=== PATIENT | female | born 1965 | race Caucasian/White ===

== ENCOUNTER 2021-02-04 16:37 | Emergency (ER) | payer MEDICAID ==
[~2021-02-04] VITALS: Ht 152.4 cm; Wt 54.5 kg
[~2021-02-04 16:37] MED LIST: ALBU8.5H8 IH; ASPI81TA39 PO; IBUP-1506 PO; INSLAN SQ; INSU100V SQ; LORA10TA7 PO
[2021-02-04] MEDS ORDERED: FLUT16H NASAL (16:53)
[2021-02-04] MEDS ORDERED: LISI-894 PO (16:53)
[2021-02-04] MEDS ORDERED: ONDA-104 PO (16:53)
[2021-02-04] MEDS ORDERED: LORA10TA7 PO (16:53)
[2021-02-04] MEDS ORDERED: HYDR25TA2 PO (16:53)
[2021-02-04] MEDS ORDERED: FAMO20 PO (16:53)
[2021-02-04] MEDS ORDERED: PHENOBARB/HYOSCY/ATROPINE/SCOP 5 ML UDCUP ELIXIR PO ONE (19:00)
[2021-02-04] MEDS ORDERED: MAGNESIUM CITRATE 300 ML ORAL SOLUTION PO ONE (19:00)
[2021-02-04] MEDS ORDERED: HYDROCHLOROTHIAZIDE 25 MG TABLET PO ONE (21:15)
[2021-02-04 22:30] VITALS: BP 148/94
[2021-02-04 23:11] LABS: APPEARANCE,URINE CLEAR (CLEAR); BILIRUBIN,URINE NEGATIVE (NEGATIVE); GLUCOSE, URINE (UA) 100 mg/dL (NEGATIVE); KETONES,URINE NEGATIVE (NEGATIVE); LEUKOCYTE ESTERASE ,URINE SMALL (NEGATIVE); NITRATE,URINE NEGATIVE (NEGATIVE); OCCULT BLOOD,URINE SMALL (NEGATIVE); PH,URINE 6.5 (5.0-8.0); PROTEIN,URINE SEE CONFIRM (NEGATIVE); UROBILINOGEN,URINE 0.2 mg/dL (<=1.0)
[2021-02-04 23:14] LABS: SULFOSALICYLIC ACID,URINE 4+ (Negative)
[2021-02-04 23:15] LABS: BACTERIA,URINE Few /HPF (None Seen); SQUAMOUS EPITHELIAL CELL,UR Few /LPF (None Seen)
== END 2021-02-04 22:54 | disposition home or self-care (01) ==
LOC: EMS 16:39 → MERGE 16:39 → EMS 22:54
DX: K59.00 Constipation, unspecified (principal); I10 Essential (primary) hypertension; F41.9 Anxiety disorder, unspecified; E11.9 Type 2 diabetes mellitus without complications; Z79.899 Other long term (current) drug therapy
CPT/HCPCS: 81001; 81002; 82962; 87086; 99284

== ENCOUNTER 2021-10-31 17:21 | Emergency (ER) | payer MEDICAID, OTHER ==
[~2021-10-31] VITALS: Ht 154.9 cm; Wt 55.9 kg
[~2021-10-31 17:21] MED LIST changes: +FAMO20 PO; +FLUT16H NASAL; +HYDR-4870 PO; +LISI-894 PO; +ONDA-104 PO
[2021-10-31] MEDS ORDERED: GABA-1181 PO (17:38)
[2021-10-31] MEDS ORDERED: EMPA10TA PO (17:38)
[2021-10-31] MEDS ORDERED: AMLO-258 PO (17:38)
[2021-10-31] MEDS ORDERED: LOSA-382 PO (17:38)
[2021-10-31] MEDS ORDERED: METO25XL PO (17:38)
[2021-10-31] MEDS ORDERED: LABETALOL HCL 5 MG/ML 20 ML VIAL IVP ONE (18:00)
[2021-10-31] MEDS ORDERED: BECL10.6 IH (18:05)
[2021-10-31] MEDS ORDERED: CHLO25TA3 PO (18:05)
[2021-10-31] MEDS ORDERED: METO25 PO (18:05)
[2021-10-31] MEDS ORDERED: INSU100I26 SQ (18:05)
[2021-10-31] MEDS ORDERED: ACETAMINOPHEN 500 MG TABLET PO ONE (18:15)
[2021-10-31 18:16] LABS: BASOPHILS % (AUTO) 0.4 % (0.0-2.0); EOSINOPHILS % (AUTO) 1.2 % (1.0-6.0); HEMATOCRIT 33.6 % (36-46); HEMOGLOBIN 11.2 g/dL (12.0-16.0); LYMPHOCYTES # (AUTO) 1.2 K/uL (1.0-4.8); LYMPHOCYTES % (AUTO) 26.3 % (22.0-44.0); MEAN CORPUSCULAR HEMOGLOBIN 27.8 pg (26.0-34.0); MEAN CORPUSCULAR HGB CONC 33.3 G/dL (31.0-37.0); MEAN CORPUSCULAR VOLUME 84 fL (80-100); MONOCYTES # (AUTO) 0.3 K/uL (0.1-1.0); MONOCYTES % (AUTO) 6.2 % (2.0-9.0); NEUTROPHILS # (AUTO) 3.1 K/uL (1.8-7.7); NEUTROPHILS % (AUTO) 65.9 % (40.0-70.0); PLATELET COUNT (AUTO) 226 K/uL (150-450); RED BLOOD CELL COUNT(AUTO) 4.03 MIL/uL (4.00-5.20); RED CELL DISTRIBUTION WIDTH 13.6 % (11.5-14.5)
[2021-10-31 18:30] LABS: ALBUMIN 3.4 g/dL (3.4-5.0); BILIRUBIN,TOTAL 0.2 mg/dL (0.1-1.0); CALCIUM, TOTAL 8.9 mg/dL (8.8-10.5); CREATININE 1.36 mg/dL (0.60-1.30); POTASSIUM 4.9 mmol/L (3.5-5.1); TOTAL PROTEIN, SERUM 7.9 g/dL (6.4-8.2)
[2021-10-31 18:35] LABS: INR 0.9 (0.9-1.1); PROTHROMBIN TIME 10.1 SEC (9.4-11.6)
[2021-10-31] MEDS ORDERED: SODIUM CHLORIDE 0.9% 1,000 ML IV ONE (19:15)
[2021-10-31 21:40] VITALS: BP 138/84
== END 2021-10-31 21:52 | disposition home or self-care (01) ==
LOC: EMS 17:21
DX: R51.9 Headache, unspecified (principal); I10 Essential (primary) hypertension; E11.9 Type 2 diabetes mellitus without complications; F41.9 Anxiety disorder, unspecified; Z79.899 Other long term (current) drug therapy
CPT/HCPCS: 36415; 70450; 71045; 80053; 82962; 84484; 85025; 85610; 85730; 93005; 96361; 96374; 99285; J3490; J7030

== ENCOUNTER 2022-07-17 14:24 | Emergency (ER) | payer OTHER ==
[~2022-07-17] VITALS: Ht 152.4 cm; Wt 63.6 kg
[~2022-07-17 14:24] MED LIST changes: +AMLO-258 PO; +BECL10.6 IH; +CHLO25TA3 PO; +EMPA10TA3 PO; -FLUT16H NASAL; +FLUT16SP NASAL; +GABA-1181 PO; -HYDR-4870 PO; -IBUP-1506 PO; -INSLAN SQ; +INSU100I26 SQ; -INSU100V SQ; +LOSA-382 PO; +METO25 PO
[2022-07-17] MEDS ORDERED: CARV12 PO (15:08)
[2022-07-17] MEDS ORDERED: CHL25 PO (15:08)
[2022-07-17] MEDS ORDERED: SITA25 PO (15:08)
[2022-07-17 15:21] LABS: GLUCOMETER DEV NAME(LOC) ERT.5; GLUCOSE,POINT OF CARE 397 MG/DL (70-110)
[2022-07-17 18:09] LABS: BASOPHILS % (AUTO) 0.3 % (0.0-2.0); EOSINOPHILS % (AUTO) 3.5 % (1.0-6.0); HEMATOCRIT 30.1 % (36-46); HEMOGLOBIN 10.1 g/dL (12.0-16.0); LYMPHOCYTES # (AUTO) 1.2 K/uL (1.0-4.8); LYMPHOCYTES % (AUTO) 23.9 % (22.0-44.0); MEAN CORPUSCULAR HEMOGLOBIN 29.9 pg (26.0-34.0); MEAN CORPUSCULAR HGB CONC 33.7 G/dL (31.0-37.0); MEAN CORPUSCULAR VOLUME 89 fL (80-100); MONOCYTES # (AUTO) 0.4 K/uL (0.1-1.0); MONOCYTES % (AUTO) 7.1 % (2.0-9.0); NEUTROPHILS # (AUTO) 3.2 K/uL (1.8-7.7); NEUTROPHILS % (AUTO) 65.2 % (40.0-70.0); PLATELET COUNT (AUTO) 204 K/uL (150-450); RED BLOOD CELL COUNT(AUTO) 3.39 MIL/uL (4.00-5.20); RED CELL DISTRIBUTION WIDTH 13.1 % (11.5-14.5)
[2022-07-17 18:14] LABS: CALCIUM, TOTAL 8.8 mg/dL (8.8-10.5); CREATININE 1.22 mg/dL (0.60-1.30); POTASSIUM 5.1 mmol/L (3.5-5.1)
[2022-07-17 18:20] LABS: ALBUMIN 3.3 g/dL (3.4-5.0); BILIRUBIN,TOTAL 0.2 mg/dL (0.1-1.0); TOTAL PROTEIN, SERUM 7.4 g/dL (6.4-8.2)
[2022-07-17 18:49] VITALS: BP 123/83
[2022-07-17 19:41] LABS: APPEARANCE,URINE CLEAR (CLEAR); BILIRUBIN,URINE NEGATIVE (NEGATIVE); GLUCOSE, URINE (UA) >=1000 mg/dL (NEGATIVE); KETONES,URINE NEGATIVE (NEGATIVE); LEUKOCYTE ESTERASE ,URINE NEGATIVE (NEGATIVE); NITRATE,URINE NEGATIVE (NEGATIVE); OCCULT BLOOD,URINE NEGATIVE (NEGATIVE); PROTEIN,URINE 30-70 mg/dL (NEGATIVE); SPECIFIC GRAVITIY, URINE 1.018 (1.003-1.030); UROBILINOGEN,URINE <=1.0 mg/dL (<=1.0)
[2022-07-17 19:55] LABS: RBC,URINE None Seen /HPF (0-2); WBC,URINE 0-2 /HPF (0-5)
[2022-07-17 19:56] LABS: BACTERIA,URINE Many /HPF (None Seen)
[2022-07-17] MEDS ORDERED: SULF-261 PO (19:58)
[2022-07-17] MEDS ORDERED: ACETAMINOPHEN 500 MG TABLET PO ONE (20:00)
[2022-07-17] MEDS ORDERED: CARV25TA32 PO (20:06)
[2022-07-17] MEDS ORDERED: SEMA0.25 SQ (20:06)
[2022-07-17] MEDS ORDERED: ALBU8HFA IH (20:06)
[2022-07-17] MEDS ORDERED: SITA50 PO (20:06)
== END 2022-07-17 20:27 | disposition home or self-care (01) ==
LOC: EMS 14:26
DX: N39.0 Urinary tract infection, site not specified (principal); R10.11 Right upper quadrant pain; E11.65 Type 2 diabetes mellitus with hyperglycemia; F41.9 Anxiety disorder, unspecified; I10 Essential (primary) hypertension; I63.9 Cerebral infarction, unspecified
CPT/HCPCS: 74176; 80053; 81001; 81003; 82962; 83690; 85025; 87086; 87186; 99284

== ENCOUNTER 2022-09-27 23:57 | Emergency (ER) | payer OTHER ==
[~2022-09-27] VITALS: Ht 154.9 cm; Wt 59.1 kg
[~2022-09-27 23:57] MED LIST changes: +ALBU18HF12 IH; -ALBU8.5H8 IH; +CARV25TA32 PO; +CHL25 PO; -CHLO25TA3 PO; -METO25 PO; +SEMA0.25 SQ; +SITA50 PO; +SULF-261 PO
[2022-09-28 01:39] LABS: BASOPHILS % (AUTO) 0.3 % (0.0-2.0); EOSINOPHILS % (AUTO) 1.9 % (1.0-6.0); HEMATOCRIT 28.2 % (36-46); HEMOGLOBIN 9.5 g/dL (12.0-16.0); LYMPHOCYTES # (AUTO) 0.7 K/uL (1.0-4.8); LYMPHOCYTES % (AUTO) 21.2 % (22.0-44.0); MEAN CORPUSCULAR HGB CONC 33.6 G/dL (31.0-37.0); MEAN CORPUSCULAR VOLUME 89 fL (80-100); MONOCYTES # (AUTO) 0.4 K/uL (0.1-1.0); MONOCYTES % (AUTO) 10.3 % (2.0-9.0); NEUTROPHILS # (AUTO) 2.2 K/uL (1.8-7.7); NEUTROPHILS % (AUTO) 66.3 % (40.0-70.0); PLATELET COUNT (AUTO) 155 K/uL (150-450); RED BLOOD CELL COUNT(AUTO) 3.17 MIL/uL (4.00-5.20)
[2022-09-28 01:46] LABS: CALCIUM, TOTAL 8.5 mg/dL (8.8-10.5); CREATININE 1.18 mg/dL (0.60-1.30); POTASSIUM 5.6 mmol/L (3.5-5.1)
[2022-09-28 01:58] LABS: PROTHROMBIN TIME 10.7 SEC (9.4-11.6)
[2022-09-28 02:06] LABS: ALBUMIN 3.5 g/dL (3.4-5.0); BILIRUBIN,TOTAL 0.2 mg/dL (0.1-1.0); TOTAL PROTEIN, SERUM 7.4 g/dL (6.4-8.2)
[2022-09-28 02:36] LABS: APPEARANCE,URINE CLEAR (CLEAR); BILIRUBIN,URINE NEGATIVE (NEGATIVE); GLUCOSE, URINE (UA) >=1000 mg/dL (NEGATIVE); KETONES,URINE NEGATIVE (NEGATIVE); LEUKOCYTE ESTERASE ,URINE TRACE (NEGATIVE); NITRATE,URINE NEGATIVE (NEGATIVE); OCCULT BLOOD,URINE SMALL (NEGATIVE); PROTEIN,URINE 100-200,SEE CONFIRM mg/dL (NEGATIVE); UROBILINOGEN,URINE <=1.0 mg/dL (<=1.0)
[2022-09-28 02:43] LABS: SULFOSALICYLIC ACID,URINE 1+ (Negative)
[2022-09-28 02:44] LABS: BACTERIA,URINE Few /HPF (None Seen); SQUAMOUS EPITHELIAL CELL,UR None Seen /LPF (None Seen)
[2022-09-28] MEDS ORDERED: SODIUM CHLORIDE 0.9% 1,000 ML IV ONE (02:45)
[2022-09-28 03:51] VITALS: BP 166/88
[2022-09-28] MEDS ORDERED: SODIUM POLYSTYRENE SULFONATE 15 GM/60 ML SUSPENSION BOTTLE PO ONE ×2 (05:45)
[2022-09-28] MEDS ORDERED: CEPH-558 PO (05:56)
== END 2022-09-28 06:10 | disposition home or self-care (01) ==
LOC: EMS 23:58
DX: E11.9 Type 2 diabetes mellitus without complications (principal); E86.0 Dehydration; F41.9 Anxiety disorder, unspecified; I10 Essential (primary) hypertension; Z98.890 Other specified postprocedural states
CPT/HCPCS: 99285; 80053; 81001; 82550; 83880; 84484; 85025; 85610; 85730; 36415; 96360; 71045; 82962; 93005; J7030; 81002

== ENCOUNTER 2023-05-27 21:04 | Emergency (ER) | payer OTHER ==
[~2023-05-27] VITALS: Ht 167.6 cm; Wt 78.0 kg
[~2023-05-27 21:04] MED LIST changes: +CEPH-558 PO
[2023-05-27 21:09] VITALS: TEMP 98.1
[2023-05-27] MEDS ORDERED: CloNIDine HCL 0.1 MG TABLET PO ONE (23:30)
[2023-05-27 23:32] LABS: BASOPHILS % (AUTO) 0.2 % (0.0-2.0); EOSINOPHILS % (AUTO) 2.3 % (1.0-6.0); HEMATOCRIT 26.6 % (36-46); HEMOGLOBIN 9.1 g/dL (12.0-16.0); LYMPHOCYTES # (AUTO) 1.1 K/uL (1.0-4.8); LYMPHOCYTES % (AUTO) 20.2 % (22.0-44.0); MEAN CORPUSCULAR HEMOGLOBIN 28.9 pg (26.0-34.0); MEAN CORPUSCULAR HGB CONC 34.3 G/dL (31.0-37.0); MEAN CORPUSCULAR VOLUME 85 fL (80-100); MONOCYTES # (AUTO) 0.4 K/uL (0.1-1.0); MONOCYTES % (AUTO) 7.2 % (2.0-9.0); NEUTROPHILS # (AUTO) 3.8 K/uL (1.8-7.7); NEUTROPHILS % (AUTO) 70.1 % (40.0-70.0); PLATELET COUNT (AUTO) 163 K/uL (150-450); RED BLOOD CELL COUNT(AUTO) 3.15 MIL/uL (4.00-5.20); RED CELL DISTRIBUTION WIDTH 13.5 % (11.5-14.5); WHITE BLOOD COUNT (AUTO) 5.4 K/uL (4.5-11.0)
[2023-05-27 23:42] LABS: CALCIUM, TOTAL 8.7 mg/dL (8.8-10.5); CREATININE 1.87 mg/dL (0.60-1.30); POTASSIUM 4.8 mmol/L (3.5-5.1)
[2023-05-27 23:47] LABS: ALBUMIN 3.1 g/dL (3.4-5.0); BILIRUBIN,TOTAL 0.2 mg/dL (0.1-1.0); TOTAL PROTEIN, SERUM 6.9 g/dL (6.4-8.2)
[2023-05-28 00:05] VITALS: BP 168/82; PULSE 88; RESP 18
[2023-05-28 00:14] LABS: TROPONIN I-HIGH SENSITIVITY 8 ng/L (<51)
== END 2023-05-28 01:56 | disposition home or self-care (01) ==
LOC: EMS 21:05
DX: I10 Essential (primary) hypertension (principal); F41.9 Anxiety disorder, unspecified; E11.9 Type 2 diabetes mellitus without complications; Z98.890 Other specified postprocedural states
CPT/HCPCS: 80053; 83880; 84484; 85025; 93005; 99284

== ENCOUNTER 2023-07-12 15:13 | Emergency (ER) | payer OTHER ==
[~2023-07-12] VITALS: Ht 154.9 cm; Wt 69.5 kg
[2023-07-12 15:18] VITALS: TEMP 97.8
[2023-07-12] MEDS: HYDROCODONE/ACETAMINOPHEN 5-325 MG TABLET PO ONE (16:10)
[2023-07-12] MEDS ORDERED: TRAM-559 PO (18:53)
[2023-07-12 18:56] VITALS: BP 152/85; PULSE 81; RESP 16
== END 2023-07-12 21:02 | disposition home or self-care (01) ==
LOC: EMS 17:55
DX: M19.011 Primary osteoarthritis, right shoulder (principal); F41.9 Anxiety disorder, unspecified; E11.9 Type 2 diabetes mellitus without complications; I10 Essential (primary) hypertension; Z98.890 Other specified postprocedural states
CPT/HCPCS: 82962; 99283